=== PATIENT | female | born 1995 | race Caucasian/White ===

== ENCOUNTER 2018-01-02 21:28 | Emergency (ER) | payer BC, OTHER ==
[2018-01-02 21:47] VITALS: BP 110/66; PULSE 115; RESP 18; TEMP 98.9; O2SAT 95
[2018-01-03] MEDS ORDERED: ROBA100S5 PO (00:56)
[2018-01-03] MEDS ORDERED: PRED20 PO (00:56)
[2018-01-03] MEDS ORDERED: SOFO1TAB (00:56)
[2018-01-03] MEDS ORDERED: BENZ1CAP54 PO (00:56)
[2018-01-03] MEDS ORDERED: AK-T0.3S EACH EYE (00:56)
[2018-01-03] MEDS ORDERED: AMOX875T PO (00:56)
[2018-01-03] MEDS ORDERED: AZIT500T2 PO (00:58)
[2018-01-03] MEDS ORDERED: IBUP1TAB7 PO (00:58)
[2018-01-03 00:59] VITALS: BP 121/61; PULSE 88; RESP 20; TEMP 99.9; O2SAT 91
[2018-01-03] MEDS ORDERED: SODIUM CHLORIDE 0.9% FLUSH 10 ML FLUSH IVF PRN (01:30)
[2018-01-03] MEDS ORDERED: SODIUM CHLOR 0.9% 1000 ML INJ 1,000 ML IV ONE (01:30)
[2018-01-03 01:37] VITALS: O2SAT 93
[2018-01-03 01:42] LABS: AUTOMATED NEUTROPHIL # 3.6 TH/MM3 (1.8-7.7); BASOPHIL % 0.6 % (0.0-2.0); EOSINOPHIL % 0.1 % (0.0-4.0); HEMATOCRIT 44.7 % (35.0-46.0); HEMOGLOBIN 14.6 GM/DL (11.6-15.3); LYMPHOCYTE # 1.3 TH/MM3 (1.0-4.8); MEAN CELL VOLUME 90.5 FL (80.0-100.0); MEAN CORPUSCULAR HEMOGLOBIN 29.6 PG (27.0-34.0); MEAN CORPUSCULAR HGB CONC 32.7 % (32.0-36.0); MEAN PLATELET VOLUME 8.7 FL (7.0-11.0); MONO % 12.3 % (0.0-8.0); MONOCYTE # 0.7 TH/MM3 (0-0.9); PLATELET COUNT 129 TH/MM3 (150-450); RED BLOOD COUNT 4.94 MIL/MM3 (4.00-5.30); RED CELL DISTRIBUTION WIDTH 13.7 % (11.6-17.2); WHITE BLOOD COUNT 5.6 TH/MM3 (4.0-11.0)
[2018-01-03 01:51] LABS: BICARBONATE 27.5 MEQ/L (21.0-32.0); CALCIUM 8.7 MG/DL (8.5-10.1)
--- NOTE | 2018-01-03 01:54 | RADRPT ---
EXAM DATE/TIME: 01/03/2018 01:29 [place] COMPARISON: No previous studies available for comparison. INDICATIONS : Fever. MEDICAL HISTORY : None. SURGICAL HISTORY : None. ENCOUNTER: Initial ACUITY: 1 day PAIN SCORE: 0/10 LOCATION: Bilateral chest FINDINGS: A single view of the chest demonstrates the lungs to be symmetrically aerated without evidence of mas s, infiltrate or effusion. The cardiomediastinal contours are unremarkable. Osseous structures are intact. Bilateral nipple rings are present. CONCLUSION: No acute disease. There is no evidence of pneumonia. Jake Baer MD on January 03, 2018 at 1:40 Board Certified Radiologist. This report was verified electronically.
[2018-01-03 01:55] LABS: CREATININE 0.87 MG/DL (0.50-1.00)
[2018-01-03 05:41] LABS: MONOSCREEN NEG (NEG)
[2018-01-03 05:45] VITALS: BP 103/51; PULSE 78; RESP 16; TEMP 99.5; O2SAT 95
--- NOTE | 2018-01-03 06:40 | PD ---
HPI Chief Complaint: Cold / Flu Symptoms Time Seen by Provider: 01:16 Travel History International Travel<30 days: No Contact w/Intl Traveler<30days: No Traveled to known affect area: No History of Present Illness HPI 22-year-old female presents to the emergency department by private transportation for complaint of flulike symptoms. Patient has been ill 5 days. Patient was seen in urgent care diagnosed with positive strep test and placed on azithromycin. Patient's symptoms are not improving and therefore to see her primary care provider who recently placed her on amoxicillin and steroid. Patient has not started these medications. Patient continues to feel myalgias arthralgias sore throat ongoing fever and generalized fatigue. Patient presents with mild tachycardia. Patient had nausea with minimal vomiting no abdominal pain no diarrhea. No dysuria frequency or urgency. Patient denies . PFSH Past Medical History Narrative Medical Hepatitis C, tonsillectomy; nursing notes reviewed Diminished Hearing: No Hepatitis: Yes Tetanus Vaccination: Unknown Influenza Vaccination: Yes ?: Not LMP: 12/11/17 Past Surgical History Tonsillectomy: Yes Social History Alcohol Use: No Tobacco Use: No Substance Use: No Allergies-Medications (Allergen,Severity, Reaction): Coded Allergies: No Known Allergies (Unverified , 01/03/18) Reported Meds & Prescriptions Reported Meds & Active Scripts Active Reported Azithromycin 500 Mg Tab 500 Mg PO DAILY Ibuprofen 800 Mg Tab 800 Mg PO Q6HR PRN Epclusa 400 mg-100 mg Tablet (Sofosbuvir/Velpatasvir) 400 Mg-100 Mg Tablet Benzonatate 100 Mg Cap 100 Mg PO TID PRN Prednisone 20 Mg Tab 20 Mg PO DIRECTED 40 MG twice a day x 3 days, then 20 MG daily x 3 days, then 10 MG daily x 3 days Amoxicillin 875 Mg Tab 875 Mg PO BID Tobramycin Opth Drops 0.3 % Soln 2 Drop EACH EYE Q4H Robafen (Guaifenesin) 100 Mg/5 Ml Syp 10 Ml PO Q6HR PRN Review of Systems Except as stated in HPI: all other systems reviewed are Neg General / Constitutional: Positive: Fever, No: Chills HENT: Positive: Sore Throat, Congestion, No: Neck Stiffness, Neck Pain Respiratory: Positive: Cough, No: Shortness of Breath Gastrointestinal: Positive: Nausea, No: Vomiting, Diarrhea, Abdominal Pain Genitourinary: No: Dysuria, Flank Pain Musculoskeletal: Positive: Myalgias, Arthralgias Skin: No Rash Neurologic: Positive: Weakness Psychiatric: No: Anxiety Hematologic/Lymphatic: No: Lymph Node Enlargement Physical Exam Narrative GENERAL: Well-developed well-nourished female no acute distress no respiratory distress SKIN: Warm and dry. HEAD: Normocephalic. EYES: No scleral icterus. No injection or drainage. ENT: Mucous membranes moist airways patent posterior pharynx no redness exudative change or edema. Tympanic membranes no redness dullness or loss of landmarks. NECK: Supple, trachea midline. No JVD or lymphadenopathy. No meningismus no nuchal rigidity. CARDIOVASCULAR: Increased regular rate and rhythm without murmurs, gallops, or rubs. RESPIRATORY: Breath sounds equal bilaterally. No accessory muscle use. GASTROINTESTINAL: Abdomen soft, non-tender, nondistended. MUSCULOSKELETAL: No cyanosis, or edema. BACK: Nontender without obvious deformity. No CVA tenderness. Data Data Last Documented VS Vital Signs Date Time Temp Pulse Resp B/P (MAP) Pulse Ox O2 Delivery O2 Flow Rate FiO2 01/03/18 07:02 01/03/18 05:45 99.5 78 16 95 Room Air Orders Orders Complete Blood Count With Diff (01/03/18 01:16) Basic Metabolic Panel (Bmp) (01/03/18 01:16) Monoscreen (01/03/18 01:16) Group A Rapid Strep Screen (01/03/18 01:16) Influenzae A/B Antigen (01/03/18 01:16) Chest, Single Ap (01/03/18 01:16) Iv Access Insert/Monitor (01/03/18 01:16) Oximetry (01/03/18 01:16) Sodium Chloride 0.9% Flush (Ns Flush) (01/03/18 01:30) Sodium Chlor 0.9% 1000 Ml Inj (Ns 1000 M (01/03/18 01:30) Strep Culture (Group A) (01/03/18 01:33) Ed Discharge Order (01/03/18 06:28) Labs Laboratory Tests Test 01/03/18 01:33 White Blood Count 5.6 TH/MM3 Red Blood Count 4.94 MIL/MM3 Hemoglobin 14.6 GM/DL Hematocrit 44.7 % Mean Corpuscular Volume 90.5 FL Mean Corpuscular Hemoglobin 29.6 PG Mean Corpuscular Hemoglobin Concent 32.7 % Red Cell Distribution Width 13.7 % Platelet Count 129 TH/MM3 Mean Platelet Volume 8.7 FL Neutrophils (%) (Auto) 63.0 % Lymphocytes (%) (Auto) 24.0 % Monocytes (%) (Auto) 12.3 % Eosinophils (%) (Auto) 0.1 % Basophils (%) (Auto) 0.6 % Neutrophils # (Auto) 3.6 TH/MM3 Lymphocytes # (Auto) 1.3 TH/MM3 Monocytes # (Auto) 0.7 TH/MM3 Eosinophils # (Auto) 0.0 TH/MM3 Basophils # (Auto) 0.0 TH/MM3 CBC Comment DIFF FINAL Differential Comment Blood Urea Nitrogen 7 MG/DL Creatinine 0.87 MG/DL Random Glucose 99 MG/DL Calcium Level 8.7 MG/DL Sodium Level 135 MEQ/L Potassium Level 4.1 MEQ/L Chloride Level 100 MEQ/L Carbon Dioxide Level 27.5 MEQ/L Anion Gap 8 MEQ/L Estimat Glomerular Filtration Rate 82 ML/MIN Monoscreen NEG MDM Medical Decision Making Medical Screen Exam Complete: Yes Emergency Medical Condition: Yes Medical Record Reviewed: Yes Interpretation(s) [id number] hCG: Negative Rapid strep antigen: Negative Influenza antigen negative [place] screen: Negative Last Impressions Chest X-Ray 01/03/18 0116 Signed Impressions: Service Date/Time: Wednesday, January 03, 2018 01:29 - CONCLUSION: No acute disease. There is no evidence of pneumonia. Jake Baer MD CBC & BMP Diagram 01/03/18 01:33 Calcium Level 8.7 Vital Signs Date Time Temp Pulse Resp B/P (MAP) Pulse Ox O2 Delivery O2 Flow Rate FiO2 01/03/18 07:02 01/03/18 05:45 99.5 78 16 103/51 (68) 95 Room Air 01/03/18 01:37 93 Room Air 01/03/18 00:59 90 18 94 Room Air 01/03/18 00:59 99.9 88 20 121/61 (81) 91 Room Air 01/02/18 21:47 98.9 115 18 110/66 (81) 95 Differential Diagnosis Viral syndrome, influenza, pneumonia, bronchitis, dehydration, mononucleosis, UTI; sepsis Narrative Course Patient placed on alarm security or surveillance monitor IV access obtained specimens collected and sent for resulting patient administered IV fluid hydration Patient resting comfortably voicing no concerns or complaints Lab values found to be grossly within normal limits specifically influenza antigen is negative rapid strep antigen is negative and mononucleosis screen is negative Chest x-ray reveals no infiltrate After IV fluid bolus and hydration patient feels markedly improved and is stable for outpatient management and follow-up with her primary care provider is encouraged to complete course of antibiotic as prescribed by her physician. Diagnosis Primary Impression: Upper respiratory infection Referrals: Primary Care Physician call for appointment Patient Instructions: General Instructions Departure Forms: School Release, Please excuse from school until (free text option): No school 3 days. Tests/Procedures Additional Instructions: Increase fluid hydration Monitor temperature every 4 hours with thermometry take as needed ibuprofen/ Advil/Motrin every 6-8 hours for fever 100.4F or greater Complete course of antibiotic as prescribed Return to the emergency department for any concerns or change in condition No school 3 days Follow-up with your primary care provider Med/Other Pt SpecificInfo: No Change to Meds Disposition: 01 DISCHARGE HOME Condition: Stable Karis Abbott MD Jan 03, 2018 06:40
== END 2018-01-03 07:13 | disposition home or self-care (01) ==
LOC: PHED 21:28
DX: J06.9 Acute upper respiratory infection, unspecified (principal); M79.1 Myalgia; M25.50 Pain in unspecified joint; R50.9 Fever, unspecified; R53.83 Other fatigue; R00.0 Tachycardia, unspecified; R11.2 Nausea with vomiting, unspecified; B19.20 Unspecified viral hepatitis C without hepatic coma
CPT/HCPCS: 71045; 80048; 85025; 86308; 87081; 87804; 87880; 96360; 99284; J7030